=== PATIENT | male | born 1965 | race American Indian/Alaskan Native ===

== ENCOUNTER 2016-12-24 02:58 | Emergency (ER) | payer SELFPAY ==
[2016-12-24] MEDS: TYLENOL PO ONE (03:15)
[2016-12-24] MEDS ORDERED: TYLENOL ONE (03:15)
[2016-12-24 03:48] LABS: Basophils % (Auto) 0.8 % (0.0-1.8); Eosinophils % (Auto) 0.7 % (0.0-4.3); Hematocrit 48.2 % (35.5-45.6); Hemoglobin 15.9 gm/dl (11.8-15.2); Mean Corpuscular HGB Conc 33 % (32-34); Mean Corpuscular Hemoglobin 28 pg (28-32); Mean Corpuscular Volume 84 fl (84-94); Platelet Count 137 K/mm3 (140-440); Red Blood Count 5.73 M/mm3 (3.65-5.03); White Blood Count 6.7 K/mm3 (4.5-11.0)
[2016-12-24 03:58] LABS: INR 0.89 (0.87-1.13)
[2016-12-24 03:59] LABS: Partial Thromboplastin Time 28.6 Sec. (24.2-36.6)
[2016-12-24 04:01] LABS: Anion Gap 19 mmol/L; BUN/Creatinine Ratio 12.85; Blood Urea Nitrogen 18 mg/dL (9-20); Calcium 9.1 mg/dL (8.4-10.2); Carbon Dioxide 25 mmol/L (22-30); Glucose 106 mg/dL (75-100); Potassium 3.9 mmol/L (3.6-5.0); Sodium 136 mmol/L (137-145)
[2016-12-24 04:03] LABS: Creatine Kinase MB 5.5 ng/mL (0.0-4.0)
[2016-12-24] MEDS: NACL 0.9% 1000 ML 1,000 ML IV ONE (08:15)
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
[2016-12-24 09:20] VITALS: BP 144/84
[2016-12-24 09:27] LABS: Creatine Kinase 625 units/L (55-170)
== END 2016-12-24 10:00 | disposition home or self-care (01) ==
LOC: ED 02:58
DX: R07.9 Chest pain, unspecified (principal); R00.2 Palpitations
CPT/HCPCS: 36415; 80048; 82550; 82553; 84484; 85025; 85610; 85730; 93005; 93010; 96360; 99284; J7030